=== PATIENT | male | born 1980 | race Caucasian/White ===

== ENCOUNTER 2024-07-10 18:54 | Emergency (ER) | payer BC ==
--- NOTE | 2024-07-10 20:33 | RAD REPORT ---
EXAM: Right upper quadrant ultrasound. CLINICAL HISTORY: ABD PAIN COMPARISON: None. FINDINGS: Gallbladder: Normal. Bile ducts: No intrahepatic or extrahepatic biliary dilatation. Common bile duct measures 3 mm. Limited imaging of the liver shows no concerning finding. IMPRESSION: Unremarkable exam.
[2024-07-10 22:20] LABS: Albumin 4.2 g/dL (3.4-5.0); Albumin/Globulin Ratio 1.1 (1.1-1.8); Anion Gap 9.7 mEq/L (5.0-15.0); Bilirubin Total 0.8 mg/dL (0.2-1.0); Globulin 3.9 g/dL (2.3-3.5); Potassium 3.7 mEq/L (3.5-5.1); Protein, Total 8.1 g/dL (6.4-8.2)
[2024-07-10 22:23] LABS: Absolute Basophils 0.1 K/uL (0-0.5); Absolute Eosinophils 0.3 K/uL (0-0.5); Absolute Lymphocytes (CBC) 2.5 K/uL (0.7-4.9); Absolute Monocytes 0.9 K/uL (0.1-1.3); Absolute Neutrophil 10.2 K/uL (1.8-8.0); Basophils % 0.5 % (0-1.3); Hematocrit 48.1 % (39.6-49.0); Hemoglobin 16.3 g/dL (13.6-17.9); Lymphocytes % 18.1 % (15.3-44.8); MCH 28.9 pg (27.0-35.0); MCHC 33.8 g/dL (32.0-36.0); MCV 85.5 fL (80-100); MPV 9.7 fL (7.6-11.3); Monocytes % 6.6 % (3.3-12.3); Neutrophils % 72.8 % (41.7-73.7); Platelets 251 thou/uL (152-406); RBC Red Blood Cell Count 5.62 M/uL (4.33-5.43); Red Cell Distribution Width 14.4 % (12.1-15.2)
--- NOTE | 2024-07-10 22:30 | RAD REPORT ---
EXAMINATION: CT ABDOMEN AND PELVIS WITH CONTRAST CLINICAL INDICATION: ABD PAIN TECHNIQUE: CT abdomen and pelvis was performed, after the administration of IV contrast, as per [facility] protocol. Axial, sagittal and coronal reconstructions were obtained. One or more of the following dose reduction techniques were used: Automated exposure control, adjustment of the mA and k V according to patient size, and iterative reconstruction. Unless otherwise specified, incidental findings do not require dedicated imaging follow-up. COMPARISON: No prior exam. FINDINGS: LOWER CHEST: The visualized lung bases are clear. LIVER: Mild fatty liver is present. No focal lesion or biliary dilatation is seen. Grossly unremark able gallbladder. SPLEEN: Normal size. No focal lesion. PANCREAS: No mass, ductal dilation, or ruben-pancreatic fluid. ADRENALS: Normal; no mass. KIDNEYS: There is a 7 mm stone in the right renal pelvis. No additional tract calculus. GASTROINTESTINAL TRACT: No evidence of free air, significant intra-abdominal free fluid, bowel obstru ction or abscess. APPENDIX: Normal appendix. LYMPH NODES: No lymphadenopathy. MUSCULOSKELETAL: No acute or suspicious osseous abnormality. ADDITIONAL FINDINGS: None. IMPRESSION: Mild fatty liver. 7 mm stone is seen in the right renal pelvis. No significant hydronephrosis.
[2024-07-10] MEDS ORDERED: ONDANSETRON 4 MG/2 ML VIAL ONE (22:31)
[2024-07-10] MEDS ORDERED: FAMOTIDINE 20 MG/2 ML VIAL IV ONE (22:31)
[2024-07-10] MEDS ORDERED: MORPHINE 4 MG/ML SYR ONE (22:31)
[2024-07-10] MEDS ORDERED: NA CHLORIDE 0.9% 1,000 ML ONE (22:31)
[2024-07-10 23:37] LABS: Sqamous Epithelial None Seen /HPF (None Seen); Urine Bacteria None Seen /HPF (<20); Urine Bilirubin NEGATIVE (Negative); Urine Blood 1+ (Negative); Urine Clarity Clear (Clear); Urine Color Light-Yellow (Yellow); Urine Culture Reflex Order NOT NEEDED; Urine Glucose NEGATIVE (Negative); Urine Ketones NEGATIVE (Negative); Urine Microscopic Reflex YN ORDER UMIC; Urine Nitrite NEGATIVE (Negative); Urine Protein TRACE (Negative); Urine Urobilinogen Normal (Normal); Urine WBC <5 /HPF (<5)
[2024-07-10 23:39] LABS: Specific Gravity > 1.030 (1.005-1.030)
--- NOTE | 2024-07-10 23:46 | ER ---
Nurse's Notes [facility] Name: Olman Lawler Age: 44 yrs Sex: Male : 1980 Arrival Date: 07/10/2024 Time: 18:54 Bed 7 Private MD: Diagnosis: Ureterolithiasis, kidney stone, back pain Presentation: 07/10 19:41 Chief complaint: Patient states: ABDOMINAL PAIN OFF AND ON FOR OVER A YEAR ha1 PROGRESSIVELY HAS GOTTEN WORSE, NAUSEA, VOMITING, AND DIARRHEA. Coronavirus screen: Client denies travel out of the [place] in the last 14 days. Ebola Screen: No symptoms or risks identified at this time. Initial Sepsis Screen: Does the patient meet any 2 criteria? No. Patient's initial sepsis screen is negative. Does the patient have a suspected source of infection? No. Patient's initial sepsis screen is negative. Risk Assessment: Do you want to hurt yourself or someone else? Patient reports no desire to harm self or others. Onset of symptoms was July 10, 2024. 19:41 Method Of Arrival: Ambulatory 1 19:41 Acuity: JENNIFER 3 ha1 Triage Assessment: 19:45 General: Appears uncomfortable, Behavior is cooperative. Pain: Complains of pain in ha1 abdomen Pain radiates to back Pain currently is 10 out of 10 on a pain scale. Neuro: Level of Consciousness is awake, alert, obeys commands, Oriented to person, place, time, situation. Respiratory: Airway is patent Respiratory effort is even, unlabored, Respiratory pattern is regular, symmetrical. GI: Abdomen is round obese, Reports lower abdominal pain, upper abdominal pain, diarrhea, nausea, vomiting. Historical: - Allergies: 19:45 No Known Allergies; ha1 - PMHx: 19:45 Gout; ha1 - PSHx: 19:45 Appendectomy; HERNIA REPAIR; ha1 - Immunization history:: Adult Immunizations up to date. - Infectious Disease History:: Denies. - Social history:: Smoking status: Patient denies any tobacco usage or history of. Screenin:43 [facility] ED Fall Risk Assessment (Adult) History of falling in the last 3 months, dd2 including since admission No falls in past 3 months (0 pts) Confusion or Disorientation No (0 pts) Intoxicated or Sedated No (0 pts) Impaired Gait No (0 pts) Mobility Assist Device Used No (0 pt) Altered Elimination No (0 pt) Score/Fall Risk Level 0 - 2 = Low Risk Oriented to surroundings, Maintained a safe environment, Educated pt \T\ family on fall prevention, incl call for assistance when getting out of bed, Assessed \T\ reinforced patient's understanding of fall precautions, Hourly rounding (assess needs \T\ fall precautionary measures) done. Abuse screen: Denies threats or abuse. Denies injuries from another. Nutritional screening: No deficits noted. Tuberculosis screening: No symptoms or risk factors identified. Assessment: 22:43 General: Appears in no apparent distress. comfortable, Behavior is calm, cooperative, dd2 appropriate for age. Pain: Complains of pain in back and abdomen Pain currently is 0 out of 10 on a pain scale. at worst was 10 out of 10 on a pain scale. Neuro: No deficits noted. Level of Consciousness is awake, alert, obeys commands, Oriented to person, place, time, situation, Appropriate for age. Cardiovascular: No deficits noted. JVD is absent Patient's skin is warm and dry. Respiratory: No deficits noted. Airway is patent Respiratory effort is even, unlabored, Respiratory pattern is regular, symmetrical. GI: Abdomen is non-distended, obese, Bowel sounds present X 4 quads. Abd is soft and non tender X 4 quads. Reports lower abdominal pain, upper abdominal pain, diarrhea, nausea, vomiting. : No deficits noted. No signs and/or symptoms were reported regarding the genitourinary system. EENT: No deficits noted. No signs and/or symptoms were reported regarding the EENT system. Derm: No deficits noted. No signs and/or symptoms reported regarding the dermatologic system. Skin is healthy with good turgor, Skin is dry, Skin is normal, Skin temperature is warm. Musculoskeletal: No deficits noted. No signs and/or symptoms reported regarding the musculoskeletal system. Circulation, motion, and sensation intact. Range of motion: intact in all extremities. Vital Signs: 19:41 BP 150 / 107; Pulse 83; Resp 17 S; Temp 98.3(O); Pulse Ox 100% on R/A; Weight 133.81 ha1 kg; Height 6 ft. 1 in. ; Pain 10/10; 22:43 BP 137 / 88; Pulse 76; Resp 16; Pulse Ox 96% on R/A; dd2 23:56 BP 139 / 86; Pulse 79; Resp 16; Pulse Ox 99% on R/A; Pain 0/10; dd2 19:41 Body Mass Index 38.92 (133.81 kg, 185.42 cm) ha1 19:41 Pain Scale: Adult ha1 23:56 Pain Scale: Adult dd2 Rector Coma Score: 22:43 Eye Response: spontaneous(4). Motor Response: obeys commands(6). Verbal Response: dd2 oriented(5). Total: 15. ED Course: 18:57 Patient arrived in ED. im 19:20 Meir Jarrett MD is Attending Physician. kimmie 19:44 Triage completed. ha1 20:04 Abdomen Limited US In Process Unspecified. EDMS 20:08 Attending Physician role handed off by Meir Jarrett MD sp3 20:08 Vamshi Castro MD is Attending Physician. sp3 22:12 CT Abd/Pelvis - IV Contrast Only In Process Unspecified. EDMS 22:18 Initial lab(s) drawn, by ED staff, sent to lab. Inserted saline lock: 22 gauge in left bm8 antecubital area, using aseptic technique. Blood collected. Flushed with 10 mL NS. 22:43 No provider procedures requiring assistance completed. Patient maintains SpO2 dd2 saturation greater than 95% on room air. 22:43 Patient has correct armband on for positive identification. Bed in low position. Call dd2 light in reach. Side rails up X 1. Client placed on continuous cardiac and pulse oximetry monitoring. NIBP monitoring applied. Door closed. Noise minimized. Pillow given. Verbal reassurance given. 23:16 UA Rfx Juan Cult if indicated Sent. dd2 23:56 IV discontinued, intact, bleeding controlled, No redness/swelling at site. Pressure dd2 dressing applied. 23:56 Provided Education on: D/C EDUCATION, MEDICATION AND F/U. dd2 Administered Medications: 22:37 Not Given (Patient Refused): [id number] mg IVP once; dilute with 10 mL 0.9% NaCl; dd2 give over 2 minutes 22:37 Not Given (Patient Refused): morphineor iv 4 mg IVP once over 4 mins dd2 22:38 Not Given (Patient Refused): ondansetron 4 mg IVP once; over 2 minutes dd2 22:38 Drug: NS 0.9% IV 1000 ml IV at 1 bolus Per protocol; to be given as a bolus over 60 dd2 minutes Route: IV; Rate: 1 bolus; Site: left antecubital; 23:39 Follow up: IV Status: Completed infusion; IV Intake: 1000ml dd2 Medication: 22:43 VIS not applicable for this client. dd2 Intake: 23:39 IV: 1000ml; Total: 1000ml. dd2 Outcome: 23:45 Discharge ordered by MD. conte 23:56 Discharged to home ambulatory, dd2 23:56 Condition: stable 23:56 Discharge instructions given to patient, Instructed on discharge instructions, follow up and referral plans. medication usage, Demonstrated understanding of instructions, follow-up care, medications, Prescriptions given X 2, 23:59 Patient left the ED. dd2 Signatures: Dispatcher [employer] EDMeir Tierney MD MD cha Patel, Setul, MD MD sp3 Cely Araya, RN RN ha1 Kamini Gonzalez Brad RN RN bm8 JUANITO HILL RN RN dd2
--- NOTE | 2024-07-10 23:46 | EDPHYS ---
Physician Documentation [facility] Name: Olman Lawler Age: 44 yrs Sex: Male : 1980 Arrival Date: 07/10/2024 Time: 18:54 Bed 7 Private MD: ED Physician Vamshi Castro HPI: 07/10 21:48 This 44 yrs old Male presents to ER via Ambulatory with complaints of Abdominal Pain, sp3 Low Back Pain. 21:48 44-year-old male with history of gout and no PCP now presents to the ED with chief sp3 complaint right-sided abdominal pain and back pain that started earlier this morning. Patient states he has been having these cycles of similar symptoms now once a week. Symptoms have been occurring for the last year with originally occurring around once a month and have progressively increased in frequency. Today his significant other "forced him to come to the ER" for evaluation. He states he has emesis and occasional diarrhea with the episodes as well. He denies any coffee-ground emesis, melena, headache, neck pain, chest pain, shortness of breath, history of GI pathology, or any other signs or symptoms on ROS at this time.. Historical: - Allergies: 19:45 No Known Allergies; ha1 - PMHx: 19:45 Gout; ha1 - PSHx: 19:45 Appendectomy; HERNIA REPAIR; ha1 - Immunization history:: Adult Immunizations up to date. - Infectious Disease History:: Denies. - Social history:: Smoking status: Patient denies any tobacco usage or history of. ROS: 21:50 Constitutional: Negative for fever, chills, and weight loss, Eyes: Negative for injury, sp3 pain, redness, and discharge, Neck: Negative for injury, pain, and swelling, Cardiovascular: Negative for chest pain, palpitations, and edema, Respiratory: Negative for shortness of breath, cough, wheezing, and pleuritic chest pain, MS/Extremity: Negative for injury and deformity, Skin: Negative for injury, rash, and discoloration, Neuro: Negative for headache, weakness, numbness, tingling, and seizure, Psych: Negative for depression, anxiety, suicide ideation, homicidal ideation, and hallucinations, Allergy/Immunology: Negative for hives, rash, and allergies, Endocrine: Negative for neck swelling, polydipsia, polyuria, polyphagia, and marked weight changes, Hematologic/Lymphatic: Negative for swollen nodes, abnormal bleeding, and unusual bruising, 21:50 All other systems are negative, Exam: 21:50 Constitutional: This is a well developed, well nourished patient who is awake, alert, sp3 and in no acute distress. Head/Face: Normocephalic, atraumatic. Eyes: Pupils equal round and reactive to light, extra-ocular motions intact. Lids and lashes normal. Conjunctiva and sclera are non-icteric and not injected. Cornea within normal limits. Periorbital areas with no swelling, redness, or edema. Neck: Trachea midline, no thyromegaly or masses palpated, and no cervical lymphadenopathy. Supple, full range of motion without nuchal rigidity, or vertebral point tenderness. No Meningismus. Chest/axilla: Normal chest wall appearance and motion. Nontender with no deformity. No lesions are appreciated. Cardiovascular: Regular rate and rhythm with a normal S1 and S2. No gallops, murmurs, or rubs. Normal PMI, no JVD. No pulse deficits. Respiratory: Lungs have equal breath sounds bilaterally, clear to auscultation and percussion. No rales, rhonchi or wheezes noted. No increased work of breathing, no retractions or nasal flaring. Back: No spinal tenderness. No costovertebral tenderness. Full range of motion. Skin: Warm, dry with normal turgor. Normal color with no rashes, no lesions, and no evidence of cellulitis. MS/ Extremity: Pulses equal, no cyanosis. Neurovascular intact. Full, normal range of motion. Neuro: Awake and alert, GCS 15, oriented to person, place, time, and situation. Cranial nerves II-XII grossly intact. Motor strength 5/5 in all extremities. Sensory grossly intact. Cerebellar exam normal. Normal gait. Psych: Awake, alert, with orientation to person, place and time. Behavior, mood, and affect are within normal limits. 21:50 Abdomen/GI: No current pain on palpation. Patient states his pain went away after he arrived to the ED. He had 1 episode of emesis in the ED. Currently no pain to palpation, rebound, guarding or peritoneal signs., Vital Signs: 19:41 BP 150 / 107; Pulse 83; Resp 17 S; Temp 98.3(O); Pulse Ox 100% on R/A; Weight 133.81 ha1 kg; Height 6 ft. 1 in. ; Pain 10/10; 22:43 BP 137 / 88; Pulse 76; Resp 16; Pulse Ox 96% on R/A; dd2 23:56 BP 139 / 86; Pulse 79; Resp 16; Pulse Ox 99% on R/A; Pain 0/10; dd2 19:41 Body Mass Index 38.92 (133.81 kg, 185.42 cm) ha1 19:41 Pain Scale: Adult ha1 23:56 Pain Scale: Adult dd2 Lorenza Coma Score: 22:43 Eye Response: spontaneous(4). Motor Response: obeys commands(6). Verbal Response: dd2 oriented(5). Total: 15. MDM: 19:40 Medical Screening Exam initiated kimmie 21:52 Data reviewed: vital signs, nurses notes, lab test result(s), radiologic studies. ED sp3 course: 44-year-old male with episodic abdominal pain with emesis cyclical nature over the last year. Clinically are not highly suspicious of any critical injury, surgical abdomen, sepsis, shock or any other pathology. Differential diagnosis includes biliary pathology, gastritis, gastroenteritis, irritable bowel, kidney stone, among others. Workup will include ultrasound of the right upper quadrant, CT scan of the abdomen pelvis, and general labs. Initial workup was ordered by Dr. Jarrett prior to my arrival to help expedite care in the lobby. If workup negative, we will safely discharge patient home with GI follow-up for probable EGD and colonoscopy.. 22:59 ED course: Patient has 7 mm intrarenal kidney stone. I believe patient's symptoms for sp3 the last year have been various kidney stones passing which is consistent with his history. He is also on meds for gout which could be contributing. Will refer him to urology and discharge him on diclofenac and ondansetron ODT. Patient with no current pain or symptoms remainder of labs without significant findings.. 07/10 19:21 Order name: CBC with Diff; Complete Time: 22:46 [facility] 07/10 19:21 Order name: CMP; Complete Time: 22:46 [facility] 07/10 19:21 Order name: Lipase; Complete Time: 22:46 [facility] 07/10 19:21 Order name: UA Rfx Juan Cult if indicated; Complete Time: 23:43 [facility] 07/10 19:21 Order name: Abdomen Limited US; Complete Time: 20:38 [facility] 07/10 19:21 Order name: CT Abd/Pelvis - IV Contrast Only; Complete Time: 22:46 [facility] 07/10 19:21 Order name: IV Saline Lock; Complete Time: 22:23 [facility] 07/10 19:21 Order name: Labs collected and sent; Complete Time: 22:23 [facility] Administered Medications: 22:37 Not Given (Patient Refused): [id number] mg IVP once; dilute with 10 mL 0.9% NaCl; dd2 give over 2 minutes 22:37 Not Given (Patient Refused): morphineor iv 4 mg IVP once over 4 mins dd2 22:38 Not Given (Patient Refused): ondansetron 4 mg IVP once; over 2 minutes dd2 22:38 Drug: NS 0.9% IV 1000 ml IV at 1 bolus Per protocol; to be given as a bolus over 60 dd2 minutes Route: IV; Rate: 1 bolus; Site: left antecubital; 23:39 Follow up: IV Status: Completed infusion; IV Intake: 1000ml dd2 Disposition Summary: 07/10/24 23:45 Discharge Ordered Notes: Location: Home sp3 Condition: Stable sp3 Diagnosis - Ureterolithiasis, kidney stone, back pain sp3 Followup: sp3 - With: Private Physician - When: Upon discharge from the Emergency Department - Reason: Continuance of care Discharge Instructions: - Discharge Summary Sheet sp3 - Kidney Stones sp3 - Dietary Guidelines to Help Prevent Kidney Stones sp3 Forms: - Medication Reconciliation Form sp3 - Antibiotic Education sp3 - Prescription Opioid Use sp3 - Patient Portal Instructions sp3 - Leadership Thank You Letter sp3 Prescriptions: - Diclofenac Sodium 75 mg Oral Tablet Sustained Release - take 1 tablet ORAL route 2 times per day; 30 tablet; Refills: 0, Product sp3 Selection Permitted - ondansetron 8 mg Oral Tablet,disintegrating - take 1 tablet ORAL route every 12 hours; 20 tablet; Refills: 0, Product sp3 Selection Permitted Signatures: Dispatcher [employer] Meir Almaraz MD MD cha Patel, Setul, MD MD sp3 Cely Araya RN RN ha1 JUANITO HILL RN RN dd2 Corrections: (The following items were deleted from the chart) 19:22 19:22 CBC+H.LAB.BRZ ordered. EDMS EDMS : 19:22 COMPREHENSIVE METABOLIC PANEL+C.LAB.BRZ ordered. EDMS EDMS 19: LIPASE+C.LAB.BRZ ordered. EDMS EDMS 19: UA Rfx Juan Cult if indicated+U.LAB.BRZ ordered. EDMS EDMS 19: Abdomen Limited+US.RAD.BRZ ordered. EDMS EDMS 19: Abdomen Pelvis W Con+CT.RAD.BRZ ordered. EDMS EDMS
[2024-07-11 00:30] VITALS: TEMP 98.3
[2024-07-11 00:35] VITALS: BP 139/86; O2SAT 99
== END 2024-07-10 23:59 | disposition home or self-care (01) ==
LOC: ER 18:54
DX: N20.2 Calculus of kidney with calculus of ureter (principal)
CPT/HCPCS: 85025; 81001; 36415; 82565; 83690; 80053; 74177; 76705; 96360; 99284; Q9967; J7030; J2405

== ENCOUNTER 2024-12-23 07:25 | Day surgery (SDC) | payer BC ==
--- NOTE | 2024-12-22 11:56 | RAD REPORT ---
EXAMINATION: ONE VIEW CHEST XR CLINICAL INDICATION: Male, 44 years old.,PREOP TECHNIQUE: Frontal chest projection is submitted. Examination is limited by patient positioning and t echnique. COMPARISON: No prior exam. FINDINGS: The lungs are well inflated and clear. No pneumothorax or sizable effusion. The heart is normal in s ize. Mediastinal contours are unremarkable. IMPRESSION: No acute intrathoracic abnormalities.
[2024-12-23] MEDS: Ringers Lactate 1,000 ML IV ONE (07:49)
[2024-12-23] MEDS ORDERED: MIDAZOLAM HCL 2 MG/2 ML INJ ONE (08:09)
[2024-12-23] MEDS ORDERED: FENTANYL CITR 100 MCG/2 ML ONE ×2 (08:09→09:30)
[2024-12-23] MEDS ORDERED: LIDOCAINE 1% MPF 5 ML VIAL ONE (08:09)
[2024-12-23] MEDS ORDERED: ROCURONIUM 50 MG/5 ML VIAL IV ONE (08:42)
[2024-12-23] MEDS ORDERED: Gentamicin Inj 240 MG in NA CHLORIDE 0.9% 100 ML IV ONE (09:00)
[2024-12-23] MEDS ORDERED: NS 0.9% VIAL 20 ML ONE (09:01)
[2024-12-23] MEDS: AMPICILLIN SODIUM 2 GM/VIAL VIAL ONE (09:04)
[2024-12-23] MEDS: GENTAMICIN 80 MG/100 ML BAG 0 MG/0 ML BAG IV ONE (09:07)
[2024-12-23] MEDS ORDERED: ONDANSETRON 4 MG/2 ML VIAL ONE ×2 (09:25→11:04)
[2024-12-23 10:19] VITALS: TEMP 97
--- NOTE | 2024-12-23 10:21 | P.OP ---
Date of Service: 12/23/24 Preoperative diagnoses: Right ureterolithiasis Right flank pain Postoperative diagnoses: Right ureterolithiasis Right flank pain Right mid distal ureteral stricture disease Principal procedures: Cystoscopy Right retrograde pyelography Right ureteroscopy Right 6 Tunisian by 28 cm double-J ureteral stent placement Indications for procedure: The patient presented to the urology clinic with an obstructing proximal 7 mm ureterolithiasis. He was having right flank pain that persisted, and despite an attempt at passage, which he elected, he was never able to collect the stone and was having persistent pain as recently as few days ago on Sunday. Procedure note: Patient was consented in the preoperative holding area before being transferred to the operative suite where general anesthesia was induced. He was given ampicillin 2 g and gentamicin 240 mg IV antimicrobial prophylaxis, and pneumoboots were provided for DVT prophylaxis. He was placed in the lithotomy position, padded and secured to the table appropriately. His genitalia was prepped with Hibiclens and he was draped in standard fashion. The case was begun using a 22 Tunisian rigid cystoscope to traverse the urethra and into the bladder with relative ease. The bladder was surveyed, and no papillary mucosal lesions, foreign bodies, or stones were noted throughout. The ureteral orifices were orthotopic in location. The right ureteral orifice was a bit stenotic; so I utilized the tip of the sensor wire and over that passed a 5 Tunisian ureteral access catheter into the distal ureter. Right retrograde pyelography: Using a 70: 30 mixture of Omnipaque and saline, I injected a bolus of contrast via the 5 Tunisian ureteral access catheter and it did propagate up the distal into the mid and proximal ureter where there were areas in the proximal and mid distal ureter of slight narrowing. The contrast did into the renal pelvis which had a mild to moderate degree of pelviectasis but no significant caliectasis. There was what appeared to be a filling defect in the region of the upper pole of the kidney, potentially a displaced calculus associated with a retrograde study. As a result, I advanced a sensor wire via the 5 Tunisian ureteral access catheter and coiled in the upper pole of the kidney as evidenced fluoroscopically. I then switched the 5 Tunisian ureteral access catheter for a dual-lumen catheter which was passed beyond the point of stenosis in the mid distal ureter with some resistance encountered, but ultimately I was able to navigate it into the proximal ureter and then ultimately into the renal pelvis. I allowed it to remain there for several minutes in order to try to dilate the orifice and the area of stenosis, and then I placed a Bentson guidewire via the second lumen of the dual-lumen catheter into the collecting system after I injected contrast via that second lumen to confirm the appropriate intraluminal localization. I then removed the dual-lumen catheter and attempted to pass the digital flexible ureteroscope over the Bentson guidewire, but I was unable to get it into the ureteral orifice. As a result, I then utilized an 11/13 Tunisian ureteral access sheath placed over the Bentson guidewire to gain access into the ureteral orifice, but this also reached a point of obstruction at the same region of stenosis in the mid distal ureter at the the mid aspect of the sacroiliac region in the mid distal ureter. As a result, leaving the dual-lumen catheter at that location, I then placed the flexible ureteroscope over the Bentson guidewire and was able to visualize this point of ureteral stenosis. It was clearly an area of prior trauma, likely from where the stone may have impacted previously, as there was some edematous tissue noted in that location. However despite utilizing pressurized irrigation I was unable to navigate the flexible ureteroscope beyond that point of obstruction despite multiple attempts. As a result, I surveyed the distal aspect of the ureter on the way out and then backloaded the cystoscope over the indwelling sensor safety wire and passed a 6 Tunisian by 28 cm double-J ureteral stent over the wire ultimately coiling it in the collecting system in the renal pelvis with an additional coil formed cystoscopically visible in his bladder. I then decompressed his bladder with fluid and urine before removing the cystoscope. The patient was then taken out of the lithotomy position, awakened from general anesthesia, transferred to a stretcher, and then transferred to the recovery room in good condition. Complications: None Discharge disposition: He would likely need to be rescheduled for right ureteroscopy with laser lithotripsy and possible stent exchange ideally within the next 4 weeks, but if he so chooses, it would not be unreasonable to arrange a CT scan of the abdomen without contrast to confirm the stone is indeed in the collecting system or proximal ureter before returning for that operative evaluation. Since the stone was not radiopaque, it was not distinctly visible on fluoroscopy today; so I cannot 100% confirm the stone is still in the collecting system more proximal ureter. While it is not necessary or critical to complete the CT scan, it is at his discretion if he wishes additional confirmation of persistence of the stone. If he elects not to complete the CT scan, we will return to the operating room within the next 4 weeks. If he elects to complete the CT scan, he should see me back in follow-up in the office to discuss the result and whether subsequent operative investigation is merited.
[2024-12-23] MEDS ORDERED: HYDROCODONE/APAP 5/325 MG TAB ONE (11:11)
[2024-12-23] MEDS ORDERED: PHENAZOPYRIDINE 100MG TAB PO ONE (11:11)
[2024-12-23] MEDS: HYDROCODONE/APAP 5/325 MG TAB PO PRN (11:35)
[2024-12-23] MEDS: PHENAZOPYRIDINE 100MG TAB PO ONE (11:35)
[2024-12-23 12:38] VITALS: BP 134/81; O2SAT 98
--- NOTE | 2024-12-23 17:28 | RAD REPORT ---
EXAMUrethrocystogrphy Retrograde CLINICAL HISTORY: Right ureteral stent placement FINDINGS: 17 fluoroscopic spot images obtained. Fluoroscopy time 0.3 minutes. Please refer to Dr. Santo report for additional findings
== END 2024-12-23 13:45 | disposition home or self-care (01) ==
LOC: OR 07:25
PROVIDERS: ATTEND Urology
PROC: 0T768DZ Dilation of Right Ureter with Intraluminal Device, Via Natural or Artificial Opening Endoscopic (ICD-10-PCS; principal; 2024-12-23 08:45)
DX: N20.0 Calculus of kidney (principal); R10.9 Unspecified abdominal pain; N13.5 Crossing vessel and stricture of ureter without hydronephrosis
CPT/HCPCS: 51610; 71045; 74450; 93005; A4216; J0290; J1100; J1580; J2003; J2250; J2405; J2704; J3010; J7120